=== PATIENT | female | born 1985 | race Caucasian/White ===

== ENCOUNTER 2019-08-07 15:31 | Day surgery (SDC) | payer BC ==
[2019-08-07] MEDS ORDERED: FENTANYL CITRATE INJ/PF 100 MCG/2 ML AMPUL ONE (15:58)
[2019-08-07] MEDS ORDERED: ONDANSETRON HCL INJ/PF 4 MG/2 ML SDV ONE (15:58)
[2019-08-07] MEDS ORDERED: FLUMAZENIL INJ 0.5 MG/5 ML VIAL ONE (15:58)
[2019-08-07] MEDS ORDERED: DIPHENHYDRAMINE HCL 50 MG/ML VIAL ONE (15:58)
[2019-08-07] MEDS ORDERED: NALOXONE HCL INJ/PF 0.4 MG/1 ML SDV ONE (15:58)
[2019-08-07] MEDS ORDERED: EPINEPHRINE INJ 1 MG/10 ML DISP.SYRIN ONE (15:59)
[2019-08-07] MEDS ORDERED: GLUCAGON,HUMAN RECOMB 1 MG INJ ONE (15:59)
[2019-08-07] MEDS: MIDAZOLAM 2 MG/2 ML INJ ONE ×2 (17:01→17:05)
--- NOTE | 2019-08-07 17:19 | Operative Report ---
Operative Report DATE OF SURGERY: 08/07/19 Operative Report: Pre-op diagnosis: History of reflux Post-op diagnosis: Normal EGD Surgery: Esophagogastroduodenoscopy with biopsy Medications: Versed 3mg Fentanyl 100 Mcg IV push Tissue removed: Antral and GE junction biopsy for pathology Procedure: After informed consent obtained from patient, the throat was sprayed with Hurricane and conscious sedation was achieved. The upper endoscope was inserted into the esophagus under direct vision and advanced into the stomach. The duodenum was entered and examined to the second part. Endoscope was then slowly pulled out of the patient as the mucosa was examined into details. Patient tolerated procedure well. Findings Esophagus: Normal Z-line was irregular and at 38 cm. Biopsy was taken to rule out intestinal metaplasia Antrum: Normal Body: Normal Fundus: Normal Duodenum first part: Normal Duodenum second part: Normal Plan: Await pathology. Continue Protonix at 20 mg daily OPERATION: .
[2019-08-07 18:17] VITALS: BP 101/63
== END 2019-08-07 18:20 | disposition home or self-care (01) ==
LOC: END 15:31
PROVIDERS: ATTEND Internal Medicine Gastroenterology
DX: K21.0 Gastro-esophageal reflux disease with esophagitis (principal); K29.50 Unspecified chronic gastritis without bleeding
CPT/HCPCS: 43239; 88342 ×2; 88305 ×2; J2250; J3010; J0171; J1200; J1610; J2310; J2405; J3490